=== PATIENT | male | born 1990 | race Hispanic/Latino ===

== ENCOUNTER 2024-01-10 18:00 | Emergency (ER) | payer OTHER ==
[~2024-01-10] VITALS: Ht 167.6 cm; Wt 93.0 kg
[2024-01-10 19:11] VITALS: BP 124/74; PULSE 88; RESP 16; O2SAT 97
[2024-01-10] MEDS: IBUPROFEN 600 MG TABLET PO ONE (19:59)
== END 2024-01-10 20:46 | disposition home or self-care (01) ==
LOC: EDH 18:00
DX: S62.627A Displaced fracture of middle phalanx of left little finger, initial encounter for closed fracture (principal); W22.8XXA Striking against or struck by other objects, initial encounter; Y93.89 Activity, other specified; Y92.89 Other specified places as the place of occurrence of the external cause; Y99.8 Other external cause status
CPT/HCPCS: 29130; 73140